=== PATIENT | female | born 1950 | race African-American/Black ===

== ENCOUNTER 2023-05-16 09:11 | Emergency (ER) | payer OTHER ==
[~2023-05-16] VITALS: Ht 165.1 cm; Wt 70.9 kg
[~2023-05-16 09:11] MED LIST: GLIP2.5T9; LOPRESSOR; LORA-655
[2023-05-16 10:03] VITALS: TEMP 98.9; O2SAT 96
[2023-05-16 12:22] LABS: COVID19 ANTIGEN SOFIA FIA NEGATIVE (NEGATIVE)
[2023-05-16 12:23] LABS: Rapid Influenza A Negative (Negative); Rapid Influenza B Negative (Negative)
[2023-05-16] MEDS ORDERED: BENZ100C97 PO (12:43)
[2023-05-16] MEDS ORDERED: AZIT-43 PO (12:43)
[2023-05-16 13:03] VITALS: BP 151/81; PULSE 82; RESP 20; O2SAT 100
== END 2023-05-16 13:05 | disposition home or self-care (01) ==
LOC: ER 09:11
DX: J20.9 Acute bronchitis, unspecified (principal); E11.9 Type 2 diabetes mellitus without complications; I10 Essential (primary) hypertension; Z90.710 Acquired absence of both cervix and uterus; Z20.822 Contact with and (suspected) exposure to COVID-19; Z88.0 Allergy status to penicillin; Z91.041 Radiographic dye allergy status
CPT/HCPCS: 36415; 71046; 87426; 87804